=== PATIENT | female | born 1960 | race Caucasian/White ===

== ENCOUNTER → 2017-09-09 | Outpatient (CLI) | payer BC ==
[~2017-09-09] MED LIST: ATOR10; BELBUCA300 MCG BC; DEPLIN-ALGAL O1 EAC1 PO; Humalog100 UNIT/3 SQ; LIRA0.6P; LOSA50; METFORMIN HCL1000 MG PO; OXYC5; Omeprazole20 M1 PO; PIOG15; PREG100 PO; Pristiq100 MG PO; Seroquel50 MG; TOUJEO SOL300 UNIT/1; Vyvanse70 MG
== END | disposition home or self-care (01) ==
LOC: LAB 12:09
PROVIDERS: Obstetrics & Gynecology
DX: Z01.419 Encounter for gynecological examination (general) (routine) without abnormal findings (principal)
CPT/HCPCS: G0123

== ENCOUNTER 2017-11-07 08:42 | Day surgery (SDC) | payer BC ==
[~2017-11-07] VITALS: Ht 154.9 cm; Wt 81.0 kg
[~2017-11-07 08:42] MED LIST changes: -ATOR10; -LIRA0.6P; -LOSA50; -OXYC5; -Omeprazole20 M1 PO; -PIOG15; -Seroquel50 MG; -TOUJEO SOL300 UNIT/1; -Vyvanse70 MG
[2017-11-07] MEDS ORDERED: PIOG15 (09:12)
[2017-11-07] MEDS ORDERED: OXYC5 (09:13)
[2017-11-07] MEDS ORDERED: Omeprazole20 M1 PO (09:13)
[2017-11-07] MEDS ORDERED: ATOR10 (09:13)
[2017-11-07] MEDS ORDERED: LOSA50 (09:13)
[2017-11-07] MEDS ORDERED: Seroquel50 MG (09:14)
[2017-11-07] MEDS ORDERED: Vyvanse70 MG (09:14)
[2017-11-07] MEDS ORDERED: LIRA0.6P (09:14)
[2017-11-07] MEDS ORDERED: TOUJEO SOL300 UNIT/1 (09:16)
== END 2017-11-07 12:00 | disposition home or self-care (01) ==
LOC: ORSCSDS 08:42
PROVIDERS: Internal Medicine Gastroenterology
PROC: 0DB68ZX Excision of Stomach, Via Natural or Artificial Opening Endoscopic, Diagnostic (ICD-10-PCS; principal; 2017-11-07 09:45)
PROC: 0D758ZZ Dilation of Esophagus, Via Natural or Artificial Opening Endoscopic (ICD-10-PCS; principal; 2017-11-07 09:45)
PROC: 0DB58ZX Excision of Esophagus, Via Natural or Artificial Opening Endoscopic, Diagnostic (ICD-10-PCS; principal; 2017-11-07 09:45)
DX: R13.10 Dysphagia, unspecified (principal); K31.7 Polyp of stomach and duodenum; K21.9 Gastro-esophageal reflux disease without esophagitis; K76.0 Fatty (change of) liver, not elsewhere classified; E11.9 Type 2 diabetes mellitus without complications; F17.210 Nicotine dependence, cigarettes, uncomplicated; I10 Essential (primary) hypertension; J44.9 Chronic obstructive pulmonary disease, unspecified; F41.8 Other specified anxiety disorders; Z98.84 Bariatric surgery status; Z79.82 Long term (current) use of aspirin; Z79.4 Long term (current) use of insulin; Z79.899 Other long term (current) drug therapy
CPT/HCPCS: 82947; 88305; 88342; J0330; J1980; J2405; J7120

== ENCOUNTER 2019-03-25 07:53 | Day surgery (SDC) | payer BC ==
[~2019-03-25] VITALS: Ht 157.5 cm; Wt 85.0 kg
[~2019-03-25 07:53] MED LIST changes: +ATOR10; +LIRA0.6P; +LOSA50; +OXYC5; +Omeprazole20 M1 PO; +PIOG15; +Seroquel50 MG; +TOUJEO SOL300 UNIT/1; +Vyvanse70 MG
--- NOTE | 2019-03-25 10:25 | NUR ---
PT BACK TO RECOVERY ROOM VIA RECLINER POST PROCEDURE. DROWSY, BUT AWAKE. TR BAND AND SPLINT ON RIGHT WRIST. VSS. CALL LIGHT IN REACH. PT GIVEN CHEESE, CRACKERS, AND DIET COKE PER REQUEST.
--- NOTE | 2019-03-25 11:19 | NUR ---
PT VISITING WITH FAMILY. DENIES PAIN OR NEEDS. VSS. CALL LIGHT IN REACH. RIGHT RADIAL SITE CDI, NO BLEEDING, BRUISING, OR SWELLING AT SITE.
--- NOTE | 2019-03-25 12:25 | NUR ---
R RADIAL TR BAND HAS BEEN FULLY DEFLATED. PT DENIES DISCOMFORT TO SITE. NO BLEEDING, SWELLING, OR BRUISING NOTED.
--- NOTE | 2019-03-25 12:55 | NUR ---
IV DC'D, CATH INTACT. PT AND SPOUSE VERBALIZED UNDERSTANDING OF DC INSTRUCTIONS AND FOLLOW UP INFO. PT OUT TO CAR VIA W/C, SPLINT IN PLACE ON RIGHT WRIST.
== END 2019-03-25 23:44 | disposition home or self-care (01) ==
LOC: MHTC 07:53
DX: I25.10 Atherosclerotic heart disease of native coronary artery without angina pectoris (principal); E11.9 Type 2 diabetes mellitus without complications; M79.7 Fibromyalgia; E66.9 Obesity, unspecified; F17.210 Nicotine dependence, cigarettes, uncomplicated; I10 Essential (primary) hypertension; E78.5 Hyperlipidemia, unspecified; Z79.82 Long term (current) use of aspirin; Z79.899 Other long term (current) drug therapy; Z88.8 Allergy status to other drugs, medicaments and biological substances; Z88.1 Allergy status to other antibiotic agents
CPT/HCPCS: 93454; 99152; 99153; C1769; C1894; J1644; J2250; J3010; J7030; Q9967

== ENCOUNTER → 2020-05-15 | Outpatient (CLI) | payer BC ==
[2020-05-17 16:20] LABS: CORONAVIRUS (COVID19) CSH-NRL Negative (Negative)
== END | disposition home or self-care (01) ==
LOC: LAB 19:11 → LAB SHORT 19:11
PROVIDERS: Physician Assistant Medical
DX: Z20.9 Contact with and (suspected) exposure to unspecified communicable disease (principal); Z20.828 Contact with and (suspected) exposure to other viral communicable diseases
CPT/HCPCS: U0003

== ENCOUNTER → 2021-08-28 | Outpatient (CLI) | payer BC | END | disposition home or self-care (01) | LOC: LAB SHORT 08:26 | DX: L73.9 Follicular disorder, unspecified (principal); L74.8 Other eccrine sweat disorders | CPT/HCPCS: 88305 ==

== ENCOUNTER → 2022-05-14 | Outpatient (CLI) | payer BC | LOC: LAB SHORT 12:52 → PLD 12:52 | DX: D48.5 Neoplasm of uncertain behavior of skin (principal) | CPT/HCPCS: 88305 ==

== ENCOUNTER 2023-07-25 07:26 | Day surgery (SDC) | payer BC ==
[~2023-07-25] VITALS: Ht 165.1 cm; Wt 80.2 kg
[2023-07-25] MEDS ORDERED: HYDACE10B (08:12)
[2023-07-25] MEDS ORDERED: Mirapex0.125 MG (08:12)
[2023-07-25] MEDS ORDERED: OZEMPIC2 MG/0.75 (08:13)
[2023-07-25 09:48] VITALS: BP 126/75
== END 2023-07-25 09:50 | disposition home or self-care (01) ==
LOC: ORSCSDS 07:26
PROVIDERS: Internal Medicine Gastroenterology
PROC: 0DB68ZX Excision of Stomach, Via Natural or Artificial Opening Endoscopic, Diagnostic (ICD-10-PCS; principal; 2023-07-25 09:00)
PROC: 0D757ZZ Dilation of Esophagus, Via Natural or Artificial Opening (ICD-10-PCS; principal; 2023-07-25 09:00)
PROC: 0DB98ZX Excision of Duodenum, Via Natural or Artificial Opening Endoscopic, Diagnostic (ICD-10-PCS; principal; 2023-07-25 09:00)
DX: R13.10 Dysphagia, unspecified (principal); K31.9 Disease of stomach and duodenum, unspecified; K31.7 Polyp of stomach and duodenum; K57.81 Diverticulitis of intestine, part unspecified, with perforation and abscess with bleeding; F17.210 Nicotine dependence, cigarettes, uncomplicated; E66.9 Obesity, unspecified; Z96.41 Presence of insulin pump (external) (internal); Z79.82 Long term (current) use of aspirin; Z79.85 Long-term (current) use of injectable non-insulin antidiabetic drugs; Z79.4 Long term (current) use of insulin; Z79.899 Other long term (current) drug therapy
CPT/HCPCS: 82947; 88305; 88342; J2704; J7120

== ENCOUNTER 2023-11-03 13:46 | Emergency (ER) | payer BC ==
[~2023-11-03] VITALS: Ht 157.5 cm; Wt 77.1 kg
[~2023-11-03 13:46] MED LIST changes: +HYDACE10B; +Mirapex0.125 MG; +OZEMPIC2 MG/0.75
[2023-11-03 13:54] VITALS: BP 153/70
[2023-11-03] MEDS ORDERED: DiphenhydrAMINE HCl 50 MG/ML 1ML Vial IV ONE (15:30)
[2023-11-03] MEDS ORDERED: Prochlorperazine Edisylate 10 mg Vial IV ONE (15:30)
[2023-11-03] MEDS ORDERED: Ketorolac Tromethamine 30mg Vial IV ONE (15:30)
== END 2023-11-03 16:14 | disposition home or self-care (01) ==
LOC: ER 13:46
DX: R51.9 Headache, unspecified (principal); E11.9 Type 2 diabetes mellitus without complications; G47.00 Insomnia, unspecified; Z79.84 Long term (current) use of oral hypoglycemic drugs; Z79.4 Long term (current) use of insulin; Z79.899 Other long term (current) drug therapy; Z88.1 Allergy status to other antibiotic agents; Z88.6 Allergy status to analgesic agent; Z88.8 Allergy status to other drugs, medicaments and biological substances
CPT/HCPCS: 70450; 96374; 96375; 99284-25; J0780; J1200; J1885

== ENCOUNTER → 2025-04-29 | Outpatient (CLI) | payer MEDICARE, BC ==
[~2025-04-29] MED LIST changes: +DYAZIDE 37.5-21 EACH PO
[2025-05-03 17:22] LABS: 6-ACETYLMORPHINE, URN, QUANT <10 ng/mL; CODEINE, URN, QUANT <20 ng/mL; HYDROCODONE, URN, QUANT >4000 ng/mL; HYDROMORPHONE, URN, QUANT <20 ng/mL; MORPHINE, URN, QUANT <20 ng/mL; NORHYDROCODONE, URN, QUANT >4000 ng/mL; NOROXYCODONE, URN, QUANT <20 ng/mL; NOROXYMORPHONE, URN, QUANT <20 ng/mL; OXYCODONE, URN, QUANT <20 ng/mL; OXYMORPHONE, URN, QUANT <20 ng/mL
== END ==
LOC: LAB SHORT 07:45 → LAB 07:45
PROVIDERS: Physician Assistant
DX: Z79.891 Long term (current) use of opiate analgesic (principal)
CPT/HCPCS: G0480

== ENCOUNTER 2025-05-25 09:28 | Day surgery (SDC) | payer MEDICARE, BC ==
[~2025-05-25] VITALS: Ht 152.4 cm; Wt 74.9 kg
[2025-05-25] MEDS ORDERED: Budeprion Xl300 MG (10:04)
[2025-05-25] MEDS ORDERED: FLUTICASONE FU50 MCG (10:05)
[2025-05-25] MEDS ORDERED: FELODIPINE ER5 M2 (10:05)
[2025-05-25] MEDS ORDERED: METPHE20CR (10:06)
[2025-05-25] MEDS ORDERED: Coenzyme Q10100 M1 (10:07)
--- NOTE | 2025-05-25 11:49 | NUR ---
05/25/25 1149 Adilene Fernandes 12ML NORMAL SALINE USED TO ELEVATE POLYPS
[2025-05-25 12:27] VITALS: BP 116/72
== END 2025-05-25 12:27 | disposition home or self-care (01) ==
LOC: ORSCSDS 09:28
PROVIDERS: Internal Medicine Gastroenterology
PROC: 0D757ZZ Dilation of Esophagus, Via Natural or Artificial Opening (ICD-10-PCS; principal; 2025-05-25 10:45)
PROC: 0DBN8ZX Excision of Sigmoid Colon, Via Natural or Artificial Opening Endoscopic, Diagnostic (ICD-10-PCS; principal; 2025-05-25 10:45)
PROC: 0DBL8ZX Excision of Transverse Colon, Via Natural or Artificial Opening Endoscopic, Diagnostic (ICD-10-PCS; principal; 2025-05-25 10:45)
PROC: 0DJ08ZZ Inspection of Upper Intestinal Tract, Via Natural or Artificial Opening Endoscopic (ICD-10-PCS; principal; 2025-05-25 10:45)
PROC: 0DBK8ZX Excision of Ascending Colon, Via Natural or Artificial Opening Endoscopic, Diagnostic (ICD-10-PCS; principal; 2025-05-25 10:45)
PROC: 0DBM8ZX Excision of Descending Colon, Via Natural or Artificial Opening Endoscopic, Diagnostic (ICD-10-PCS; principal; 2025-05-25 10:45)
PROC: 0DBH8ZX Excision of Cecum, Via Natural or Artificial Opening Endoscopic, Diagnostic (ICD-10-PCS; principal; 2025-05-25 10:45)
DX: R13.10 Dysphagia, unspecified (principal); Z12.11 Encounter for screening for malignant neoplasm of colon; R19.5 Other fecal abnormalities; K63.5 Polyp of colon; K21.9 Gastro-esophageal reflux disease without esophagitis; D12.3 Benign neoplasm of transverse colon; D12.0 Benign neoplasm of cecum; D12.2 Benign neoplasm of ascending colon; D12.4 Benign neoplasm of descending colon; K57.30 Diverticulosis of large intestine without perforation or abscess without bleeding; K64.4 Residual hemorrhoidal skin tags; K31.7 Polyp of stomach and duodenum; K75.81 Nonalcoholic steatohepatitis (NASH); E11.9 Type 2 diabetes mellitus without complications; M79.7 Fibromyalgia; F90.9 Attention-deficit hyperactivity disorder, unspecified type; Z79.4 Long term (current) use of insulin; Z79.899 Other long term (current) drug therapy; Z79.85 Long-term (current) use of injectable non-insulin antidiabetic drugs
CPT/HCPCS: 82947; 88305; J2704; J7120

== ENCOUNTER 2025-06-22 17:42 | Emergency (ER) | payer MEDICARE, BC ==
[~2025-06-22] VITALS: Ht 152.4 cm; Wt 74.8 kg
[~2025-06-22 17:42] MED LIST changes: +Budeprion Xl300 MG; +Coenzyme Q10100 M1; +FELODIPINE ER5 M2; +FLUTICASONE FU50 MCG; +METPHE20CR
[2025-06-22] MEDS ORDERED: Ondansetron HCl 2 MG / ML 2ML Vial IV ONE (18:10)
[2025-06-22 18:13] LABS: BASOPHILS ABSOLUTE AUTO 0.10 K/mm3 (0.00-0.23); BASOPHILS PERCENT AUTO 1 % (0-2); EOSINOPHILS ABSOLUTE AUTO 0.14 K/mm3 (0.00-0.68); EOSINOPHILS PERCENT AUTO 2 % (0-6); Hematocrit 43.4 % (33.0-51.0); Hemoglobin 14.8 g/dL (11.5-16.0); IMMATURE GRAN ABSOLUTE AUTO 0.01 K/mm3 (0.00-0.10); IMMATURE GRAN PERCENT AUTO 0 % (0-1); LYMPHOCYTES ABSOLUTE AUTO 3.13 K/mm3 (0.84-5.20); LYMPHOCYTES PERCENT AUTO 37 % (21-46); MONOCYTES ABSOLUTE AUTO 0.73 K/mm3 (0.16-1.47); MONOCYTES PERCENT AUTO 9 % (4-13); Mean Corpuscular HGB Conc 34.1 g/dL (31.5-36.5); Mean Corpuscular Volume 91 fL (80-100); NEUTROPHILS ABSOLUTE AUTO 4.36 K/mm3 (1.96-9.15); NEUTROPHILS PERCENT AUTO 51 % (41-73); NRBC ABSOLUTE 0.00 K/mm3 (0.00-0.02); NRBC Auto 0.0 /100 WBC (0.0-0.2); Platelet Count 254 K/mm3 (150-400); RDW Coefficient Variation 13.7 % (11.7-14.2); RDW Standard Deviation 45.8 fL (35.1-46.3)
[2025-06-22 18:41] LABS: Alanine Aminotransfer (ALT/SGP 36.0 U/L (12-78); Albumin, Blood 3.7 g/dL (3.4-5.0); Albumin/Globulin Ratio 1.0 (0.8-1.8); Anion Gap 7.0 mmol/L (3-11); Aspartate Aminotrans (AST/SGOT 18.0 U/L (12-37); Bilirubin, Total 0.4 mg/dL (0.1-1.0); Blood Urea Nitrogen 18.0 mg/dL (8-24); CO2, Blood 27.0 mmol/L (21-32); Calcium, Blood 9.6 mg/dL (8.5-10.1); Chloride, Blood 107.0 mmol/L (98-108); Creatinine, Blood 0.66 mg/dL (0.40-1.00); Globulin, Blood 3.6 g/dL (2.2-4.0); Glucose, Blood 152.0 mg/dL (70-99); Potassium, Blood 4.2 mmol/L (3.5-5.5); Sodium, Blood 137.0 mmol/L (136-145); Total Protein, Blood 7.3 g/dL (6.4-8.2)
[2025-06-22 22:02] VITALS: BP 129/56
== END 2025-06-22 22:02 | disposition home or self-care (01) ==
LOC: ER 17:42
PROVIDERS: Emergency Medicine
DX: R07.9 Chest pain, unspecified (principal); E11.9 Type 2 diabetes mellitus without complications; G47.00 Insomnia, unspecified; F17.210 Nicotine dependence, cigarettes, uncomplicated; Z79.51 Long term (current) use of inhaled steroids; Z79.4 Long term (current) use of insulin; Z79.899 Other long term (current) drug therapy; Z88.1 Allergy status to other antibiotic agents; Z88.8 Allergy status to other drugs, medicaments and biological substances; Z88.6 Allergy status to analgesic agent
CPT/HCPCS: 71046; 80053; 84484; 85025; 93005; 93010; 96374; 99284-25; A9270; J2405